=== PATIENT | female | born 1970 | race Caucasian/White ===

== ENCOUNTER 2018-08-28 19:27 | Emergency (ER) | payer MEDICAID, SELFPAY ==
--- NOTE | 2018-08-28 19:31 | W.ED.GENAD ---
Discharge Plan Disposition Patient Disposition: HOME Condition: Stable Discharge Details Chief Complaint: Nk/Back Pain Clinical Impression: Back pain Reason For Visit: back pain Primary Care Provider: Dee Dee Montaño ED Provider: Mike Joyce Home Meds and New Rx's Prescriptions: New diazepam [Valium] 10 mg tablet 10 mg PO TID PRN (Reason: muscle spasm) Qty: 20 RF: 0 Continued Advair Diskus 1 EACH blister with device 1 puff Inhalation BID RF: 0 lamotrigine [Lamictal] 200 MG tablet 200 mg PO DAILY RF: 0 clonazepam [Klonopin] 1 MG tablet 1 mg PO DAILY RF: 0 multivitamin with minerals [Multiple Vitamin-Minerals] 1 EACH tablet 1 ea PO DAILY RF: 0 albuterol sulfate [ProAir HFA] 8.5 GM HFA aerosol inhaler 2 puff Inhalation Q4H PRN RF: 0 ibuprofen 200 MG capsule 800 mg PO Q6H PRN RF: 0 acetaminophen 650 MG tablet extended release 650 mg PO Q8H PRN RF: 0 cyclobenzaprine 10 mg Tablet 10 mg PO TID PRN PRNRF: 0 prednisone 10 mg Tablet 20 mg PO .TAPER RF: 0 sertraline [Zoloft] 100 MG tablet 200 mg PO HS RF: 0 Discharge Instructions Instructions: Back Pain (ED) Additional Instructions: Follow up with your primary care provider within 1-2 weeks if you have fevers, inability to urinate or abdominal pain return to the emergency department you can take 1000mg tylenol and 600mg ibuprofen every 6 hours for pain as needed do not take the valium and flexeril within 6 hours of each other Medical Decision Making 48 yo female who states she has a hx of djd of the lumbar spine, had seen pain clinic in the past, comes in with 3 weeks of lower back pain. Saw her pcp and has been on prednisone and cyclobenzaprine, but today has severe Spasm of right lower back not relieved with meds so came here. She lowers it to the right lower lumbar region. Denies abdominal pain. She has no abdominal tenderness on exam and no n/v or gi symptoms to suggest entities such as colitis, appendicitis. Denies hematuria and no flank pain and pain is constant so doubt renal colic/kidney stone. HAs no saddle anesthesia, no fevers, no deficits on neuro exam, denies ivdu , no findings to suggest sea or cauda equina so do not feel emergent mri indicated. No midline pain and has no trauma per pt so do not feel xray indicated as unlikely fx. Denies fevers, chills, or other systemic symptoms so do not feel w/u for osteo indicated. I suspect lumbar strain vs muscle spasm, will tx with nsaids and valium and reassess. pt does feel better, no abdominal tenderness on exam and no distention. still no neuro deficits or saddle anesthesia. I feel she is stable for outpatient management with her pcp and pain clinicc she has contacted. Do not feel emergent imaging indicated. Will send home with several oxycodone and advised only take it if severe pain and not if taking the valium or cyclobenzaprine. Return precautions given Differential Diagnosis muscle spasm, back strain, djd HPI General Mode of arrival: ambulatory. Date/Time Provider Initiated Documentation: 08/28/18 19:30. Limitations to Documentation: no limitations. Information obtained by: patient. History of Present Illness 48 year old F presents to the emergency department with the chief complaint of back pain, described as severe, with intensity rated at 8. Quality is described as other (spasm), and is localized to the back. Patient reports no radiation. Patient started experiencing this week(s) (3) and it has been constant. No relieving factors improve symptom(s), No exacerbating factors reported . Patient notes no other symptoms.. Patient did receive the following treatments prior to arrival, other (cyclobenzaprine, prednisone) Related Data Home Medications Medication Instructions Recorded Confirmed sertraline [Zoloft] 200 mg PO HS 07/10/16 08/28/18 Advair Diskus 1 puff INHALATION BID disk 09/05/17 08/28/18 albuterol sulfate [ProAir HFA] 2 puff INHALATION Q4H PRN inhaler 09/05/17 08/28/18 clonazepam [Klonopin] 1 mg PO DAILY 09/05/17 08/28/18 lamotrigine [Lamictal] 200 mg PO DAILY tab-cap 09/05/17 08/28/18 multivitamin with minerals 1 ea PO DAILY 09/05/17 08/28/18 [Multiple Vitamin-Minerals] acetaminophen 650 mg PO Q8H PRN 09/06/17 10/06/17 ibuprofen 800 mg PO Q6H PRN tab-cap 09/06/17 08/28/18 cyclobenzaprine 10 mg PO TID PRN PRN 08/28/18 08/28/18 diazepam [Valium] 10 mg PO TID PRN #20 tab 08/28/18 prednisone 20 mg PO .TAPER 08/28/18 08/28/18 Previous Rx's Medication Instructions Recorded diazepam [Valium] 10 mg PO TID PRN #20 tab 08/28/18 Allergies Allergy/AdvReac Type Severity Reaction Status Date / Time lamotrigine [From Lamictal] Allergy Intermediate Unverified 08/28/18 19:42 Sulfa (Sulfonamide Allergy Unverified 08/28/18 19:42 Antibiotics) candidias Allergy Mild Uncoded 08/28/18 19:42 Review of Systems Review of Systems All systems reviewed & are unremarkable except as noted in HPI and below Constitutional Denies chills and Denies fever(s) ENT Denies change in voice Cardiovascular Denies chest pain and Denies dyspnea Respiratory Denies cough and Denies dyspnea Gastrointestinal Denies abdominal pain, Denies nausea and Denies vomiting Genitourinary Denies dysuria Musculoskeletal Denies joint swelling Integumentary/Breasts Denies rash PFSH Medical History Acid reflux Allergic asthma Allergic rhinitis Atrophic vaginitis Clostridium difficile infection Depression Hx of abdominal pain Hx of pneumothorax Lofgrens syndrome Low back pain Obesity Panic disorder Rash Surgical History Arthroscopy, Shoulder [place] Fundoplication Social History Smoking and Tabacco status: Never Exam Const General: no acute distress Orientation: alert [facility] Head: normal to inspection Ears: external ears normal General nose exam: external nose normal Mouth: moist mucous membranes Eyes General: appearance normal, both eyes and all related structures Neck Neck: normal visual inspection Resp Effort & Inspection: normal respiratory effort and able to speak in complete sentences Cardio Rate: regular rate Back/Spine/Pelvis Back: no CVA tenderness Skin General skin exam: no rashes or lesions noted Neuro General: alert and oriented x3 Extrem General: normal to inspection Psych Mental Status: mental status grossly normal
[2018-08-28] MEDS: oxyCODONE 5 MG TAB PO (19:35)
[2018-08-28 19:38] VITALS: BP 143/84; PULSE 103; RESP 17; TEMP 36; O2SAT 95
[2018-08-28] MEDS: Ketorolac 30 MG/ML VIAL IM (19:53)
[2018-08-28 20:32] VITALS: BP 122/70; PULSE 74; RESP 16; TEMP 36.1; O2SAT 93
--- NOTE | 2018-08-30 10:32 | NUR.NOTE ---
Nursing Note: Patient called asking to have the work note be faxed to place of employment. [place] [phone]. Note was faxed and original was mailed to patient. Gisela Palencia.
== END 2018-08-28 20:42 | disposition home or self-care (01) ==
PROVIDERS: Emergency Provider Emergency Medicine; PCP Family Medicine
DX: M54.5 Low back pain (principal)
CPT/HCPCS: 96372; 99284; J1885

== ENCOUNTER 2018-09-11 01:55 | Outpatient (CLI) | payer MEDICAID, SELFPAY ==
--- NOTE | 2018-09-11 11:46 | DI.MRI_ITS ---
SYMPTOMS/DIAGNOSIS: RIGHT LUMBAR RADICULOPATHY, M54.16, RIGHT LEG TINGLING MRI OF THE LUMBAR SPINE: Comparison is 08/17/17. Routine noncontrast examination was performed. The conus medullaris has a normal appearance and location. At L5-S1, there is a small central disc herniation, but no neural impingement is identified. No significant central spinal canal stenosis is seen. No significant neural foraminal stenosis is present. At L4-L5, there is disc desiccation. There is a small central disc herniation, but no definite neural impingement is seen. There are degenerative changes of the facets, which do result in mild narrowing of the central spinal canal. There is mild narrowing of the neural foramen bilaterally, left greater than right. At L3-L4, there is disc desiccation. There is a mild diffuse disc bulge. No focal disc herniation or central spinal canal stenosis is seen. No significant neural foraminal stenosis is present. At L2-L3, there are degenerative endplate signal changes. There is loss of signal of the disc and a mild diffuse disc bulge. No focal disc herniation or significant central spinal canal or neural foraminal stenosis is present. At L1-L2, there is a left paracentral disc herniation with extrusion posterior to the L2 vertebral body. No significant central spinal canal stenosis is present. No definite neural impingement is seen. No significant neural foraminal stenosis is present. When compared to the prior examination, there has been slight interval increase in size of the herniated disc at L1-L2. Otherwise, the findings appear similar compared to 08/17/17. IMPRESSION: Multilevel degenerative changes in the lumbar spine with disc herniations at L1-L2, L4-L5 and L5-S1 as described above. There has been slight interval increase in size of the L1-L2 disc herniation since 08/17/17.
== END 2018-09-11 02:15 ==
PROVIDERS: PCP Family Medicine; Visit Provider Nurse Practitioner Family
DX: M54.16 Radiculopathy, lumbar region (principal); R20.2 Paresthesia of skin; M51.17 Intervertebral disc disorders with radiculopathy, lumbosacral region
CPT/HCPCS: 72148

== ENCOUNTER 2018-09-22 13:52 | Outpatient (REF) | payer MEDICAID, SELFPAY | END 2018-09-22 14:12 | LOC: NCHCN 13:52 | PROVIDERS: PCP Family Medicine; Visit Provider Nurse Practitioner | DX: N89.8 Other specified noninflammatory disorders of vagina (principal) | CPT/HCPCS: 87480; 87510; 87660 ==

== ENCOUNTER 2018-10-01 07:00 | Outpatient (REF) | payer MEDICAID, SELFPAY | END 2018-10-01 07:20 | LOC: NCHCN 07:00 | PROVIDERS: PCP Family Medicine; Visit Provider Family Medicine | DX: K52.1 Toxic gastroenteritis and colitis (principal) | CPT/HCPCS: 87324 ==

== ENCOUNTER 2018-10-30 08:24 | Outpatient (REF) | payer MEDICAID, SELFPAY | END 2018-10-30 08:44 | LOC: NCHCN 08:24 | PROVIDERS: PCP Family Medicine; Visit Provider Specialist/Technologist Athletic Trainer | DX: R19.7 Diarrhea, unspecified (principal) | CPT/HCPCS: 82272; 83630; 87324 ==